=== PATIENT | male | born 1955 | race Caucasian/White ===

== ENCOUNTER 2017-08-03 18:28 | Emergency (ER) | payer OTHER ==
[~2017-08-03] VITALS: Ht 165.1 cm; Wt 74.8 kg
[~2017-08-03 18:28] MED LIST: ALPOS RIGHT EYE; AMLO5TAB8 PO; COZ50 PO; DORZ10SO RIGHT EYE; FERR-142 PO; GLIP5TAB13 PO; HYDR-1807 PO; ISOS10TA9 PO; NEBI10TA PO; SODI650T2 PO; WARF2TAB17 PO; ZYL300 PO
[2017-08-03 19:07] VITALS: BP 147/69
--- NOTE | 2017-08-03 19:36 | NUR ---
BIB WHEELCHAIR TO ER BED 11
--- NOTE | 2017-08-03 19:40 | NUR ---
61/M CAME IN W C/O DIZZINESS, SUDDEN ONSET TODAY. PT REPORTS HE WAS AT REST BEFORE DIZZINESS, PT HAD DIALYSIS TODAY. DENIES BLURRY VISION, N/V/D, CP/SOB, ANY PAIN AT THIS TIME. 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 PMH: LT SIDE CVA (2006), DM, LT EYE BLINDNESS, HLD, DM, CKD
[2017-08-03 20:49] LABS: BASOPHILS # (AUTO) 0.2 K/uL (0.00-0.22); EOSINOPHILS # (AUTO) 0.1 K/uL (0-0.4); HEMOGLOBIN 11.2 g/dL (12.0-18.0); LYMPHOCYTES # (AUTO) 1.2 K/uL (2.0-11.5); MEAN CORPUSCULAR HEMOGLOBIN 32 pg (27-31); MEAN CORPUSCULAR HGB CONC 33 g/dL (33-37); MEAN CORPUSCULAR VOLUME 98 fL (80-94); MONOCYTES # (AUTO) 0.8 K/uL (0.8-1.0); NEUTROPHILS # (AUTO) 3.5 K/uL (1.8-7.7); PLATELET COUNT (AUTO) 172 K/uL (140-450); RED BLOOD CELL COUNT(AUTO) 3.48 MIL/uL (4.20-6.10); RED CELL DISTRIBUTION WIDTH 13.4 % (11.6-13.7); WHITE BLOOD COUNT (AUTO) 5.8 K/uL (4.8-10.8)
[2017-08-03 21:06] LABS: ALBUMIN 3.6 g/dL (3.4-5.0); CARBON DIOXIDE 39.6 mmol/L (21-32); POTASSIUM 4.6 mmol/L (3.5-5.1); TOTAL BILIRUBIN 0.3 mg/dL (0.0-1.0)
[2017-08-03 21:11] LABS: CREATININE 7.7 mg/dL (0.7-1.3)
--- NOTE | 2017-08-03 21:50 | NUR ---
Patient discharged with v/s stable. Written and verbal after care instructions given and explained. Patient verbalized understanding. Wheel Chair Assisted with by caregiver. All questions addressed prior to discharge. Advised to follow up with PMD.
[2017-08-03 21:53] VITALS: BP 141/72
== END 2017-08-03 21:50 | disposition home or self-care (01) ==
LOC: MED 18:28
DX: I12.0 Hypertensive chronic kidney disease with stage 5 chronic kidney disease or end stage renal disease (principal); E11.22 Type 2 diabetes mellitus with diabetic chronic kidney disease; N18.6 End stage renal disease; Z99.2 Dependence on renal dialysis
CPT/HCPCS: 80053; 82948; 83880; 84484; 85025; 93005; 99285